=== PATIENT | female | born 1970 | race Caucasian/White ===

== ENCOUNTER 2020-04-01 07:11 | Day surgery (SDC) | payer OTHER, SELFPAY ==
[~2020-04-01] VITALS: Ht 162.6 cm; Wt 61.7 kg
[2020-04-01] MEDS ORDERED: MIDAZOLAM 2 MG/2 ML VIAL ONE (09:17)
[2020-04-01] MEDS ORDERED: MIDAZOLAM 5 MG/5 ML VIAL ONE (09:18)
[2020-04-01] MEDS ORDERED: LIDOCAINE 2% 100 MG/5 ML UJET TP ONE (09:18)
[2020-04-01] MEDS ORDERED: fentaNYL citrate 0.05 MG/ML VIAL ONE (09:18)
[2020-04-01] MEDS: fentaNYL citrate 0.05 MG/ML VIAL IVP ONE (09:50)
[2020-04-01] MEDS: LIDOCAINE 2% 100 MG/5 ML UJET TP ONE (09:50)
[2020-04-01] MEDS: MIDAZOLAM 2 MG/2 ML VIAL IVP ONE (09:50)
== END 2020-04-01 10:57 | disposition home or self-care (01) ==
LOC: MDS 07:11 → MMU 07:12 → MDS 10:57
PROVIDERS: ATTEND Internal Medicine Gastroenterology
DX: Z12.11 Encounter for screening for malignant neoplasm of colon (principal); I10 Essential (primary) hypertension; E78.5 Hyperlipidemia, unspecified; Z79.899 Other long term (current) drug therapy; Z20.828 Contact with and (suspected) exposure to other viral communicable diseases
CPT/HCPCS: 45380; J2250; J3010; U0003

== ENCOUNTER 2020-12-09 06:13 | Day surgery (SDC) | payer OTHER, SELFPAY ==
[~2020-12-09] VITALS: Ht 165.1 cm; Wt 61.2 kg
[2020-12-09] MEDS ORDERED: diphenhydrAMINE 50 MG/ML VIAL ONE (07:17)
[2020-12-09] MEDS ORDERED: MIDAZOLAM 5 MG/5 ML VIAL ONE (07:17)
[2020-12-09] MEDS ORDERED: LIDOCAINE 2% 100 MG/5 ML UJET TP ONE ×2 (07:17→07:55)
[2020-12-09] MEDS ORDERED: fentaNYL citrate 0.05 MG/ML VIAL ONE (07:17)
[2020-12-09] MEDS ORDERED: fentaNYL citrate 0.05 MG/ML VIAL IVP ONE (07:55)
[2020-12-09] MEDS ORDERED: MIDAZOLAM 2 MG/2 ML VIAL IVP ONE (08:15)
[2020-12-09] MEDS ORDERED: LACTATED RINGERS 1,000 ML IV SCH (09:45)
== END 2020-12-09 12:51 | disposition home or self-care (01) ==
LOC: MMU 06:13 → MOR 06:13
PROVIDERS: ATTEND Internal Medicine Gastroenterology
DX: Z09 Encounter for follow-up examination after completed treatment for conditions other than malignant neoplasm (principal); K52.9 Noninfective gastroenteritis and colitis, unspecified; R93.89 Abnormal findings on diagnostic imaging of other specified body structures; I10 Essential (primary) hypertension; Z79.899 Other long term (current) drug therapy; Z20.822 Contact with and (suspected) exposure to COVID-19
CPT/HCPCS: 45380; 88305; J2250; J3010; U0003; J1200